=== PATIENT | female | born 1985 | race Caucasian/White ===

== ENCOUNTER → 2017-10-21 | Outpatient (CLI) | payer OTHER ==
[~2017-10-21] MED LIST: ALBU6.7H INH; BUSP10TA PO; CETI10TA2 PO; CYCL10TA PO; CYCL5TAB PO; HYDR-3583 PO; HYDR-755 PO; MONT10TA4 PO; NAPR500T2 PO
[2017-10-21 11:18] LABS: HEMATOCRIT 40.8 % (35.0-46.0); HEMOGLOBIN 13.9 GM/DL (11.6-15.3); MEAN CELL VOLUME 92.2 FL (80.0-100.0); MEAN CORPUSCULAR HEMOGLOBIN 31.4 PG (27.0-34.0); MEAN CORPUSCULAR HGB CONC 34.1 % (32.0-36.0); MEAN PLATELET VOLUME 7.8 FL (7.0-11.0); PLATELET COUNT 327 TH/MM3 (150-450); RED BLOOD COUNT 4.42 MIL/MM3 (4.00-5.30); RED CELL DISTRIBUTION WIDTH 13.6 % (11.6-17.2); WHITE BLOOD COUNT 13.4 TH/MM3 (4.0-11.0)
[2017-10-21 11:28] LABS: BILIRUBIN, URINE NEG (NEG); BLOOD, URINE SMALL (NEG); GLUCOSE,URINE NEG (NEG); KETONE, URINE NEG (NEG); MUCUS URINE FEW /lpf (OCC); NITRITE,URINE NEG (NEG); PH, URINE 5.5 (5.0-8.5); SQUAMOUS EPITHELIAL CELL URINE 12 /hpf (0-5); URINE COLOR YELLOW (YELLW/STRAW); URINE LEUKOCYTE ESTERASE NEG (NEG)
--- NOTE | 2017-10-21 18:15 | EKG ---
Date Performed: 10/21/2017 Time Performed: 11:15:02 PTAGE: 32 years EKG: Sinus rhythm INCOMPLETE RIGHT BUNDLE BRANCH BLOCK BORDERLINE ECG NO PREVIOUS TRACING DOCTOR: Jessica Torres Interpretating Date/Time 10/21/2017 18:14:12
== END ==
LOC: CPRE 09:41
PROVIDERS: ATTEND Neurological Surgery
DX: Z01.812 Encounter for preprocedural laboratory examination (principal); Z01.810 Encounter for preprocedural cardiovascular examination; M50.20 Other cervical disc displacement, unspecified cervical region
CPT/HCPCS: 36415; 81001; 85027; 87640; 87641; 93005

== ENCOUNTER → 2017-10-21 | Outpatient (CLI) | payer OTHER ==
--- NOTE | 2017-10-21 11:09 | RADRPT ---
EXAM DATE/TIME: 10/21/2017 10:58 [facility] COMPARISON: No previous studies available for comparison. INDICATIONS : Evaluate for pneumonia, pneumothorax and communicable diseases. Pre-op for cervical spine surgery. MEDICAL HISTORY : Asthma. SURGICAL HISTORY : section. Breast lift. ENCOUNTER: Initial ACUITY: 1 day PAIN SCORE: 0/10 LOCATION: Bilateral chest FINDINGS: PA and lateral views of the chest demonstrate the lungs to be symmetrically aerated without evidence of mass, infiltrate or effusion. The cardiomediastinal contours are unremarkable. Osseous structure s are intact. CONCLUSION: No acute disease. Keven Ferraro MD FACR on October 21, 2017 at 11:07 Board Certified Radiologist. This report was verified electronically.
== END ==
LOC: HRAD 10:44
PROVIDERS: ATTEND Neurological Surgery
DX: M50.20 Other cervical disc displacement, unspecified cervical region (principal)
CPT/HCPCS: 71046

== ENCOUNTER 2017-10-22 06:48 | Observation (INO) | payer OTHER ==
[~2017-10-22] VITALS: Ht 170.2 cm; Wt 93.1 kg
[~2017-10-22 06:48] MED LIST changes: -CYCL10TA PO; -HYDR-3583 PO
[2017-10-22] MEDS ORDERED: CHLORHEXIDINE GLUCONATE 2 % 1 PACK (2 CLOTHS)(extra cloths) TOPICAL PRN (07:30)
[2017-10-22] MEDS ORDERED: INSULIN HUMAN REGULAR 1,000 UNITS/10 ML VIAL SQ PRN (07:30)
[2017-10-22] MEDS ORDERED: ceFAZolin 2 GM PREMIX 50 ML IV SCH (07:30)
[2017-10-22] MEDS ORDERED: SODIUM CHLORID 0.9% 500 ML IV PRN (07:30)
[2017-10-22] MEDS ORDERED: METOPROLOL TARTRATE 25 MG TAB PO PRN (07:30)
[2017-10-22] MEDS ORDERED: POVIDONE IODINE 5% (ANTISEPSIS KIT) 4 APPLICATIONS EACH NARE PRN (07:30)
[2017-10-22] MEDS ORDERED: CHLORHEXIDINE GLUCONATE 2 % 1 PACK (2 CLOTHS) TOPICAL PRN (07:30)
[2017-10-22] MEDS ORDERED: MICROFIBRILLAR COLLAGEN HEMOSTAT 70 X 35 MM BANDAGE ONE (07:47)
[2017-10-22] MEDS ORDERED: THROMBIN (TOPICAL) 5,000 UNIT VIAL ONE (07:47)
[2017-10-22] MEDS ORDERED: GENTAMICIN SULFATE 80 MG/2 ML VIAL ONE (07:48)
[2017-10-22] MEDS ORDERED: GELFOAM SIZE 100 ONE (07:48)
[2017-10-22] MEDS: LACTATED RINGER'S 1000 ML IV PRN ×2 (10:30→17:16)
[2017-10-22 10:32] LABS: AUTOMATED NEUTROPHIL # 6.7 TH/MM3 (1.8-7.7); BASOPHIL % 0.3 % (0.0-2.0); EOSINOPHIL # 0.4 TH/MM3 (0-0.4); EOSINOPHIL % 3.6 % (0.0-4.0); HEMATOCRIT 42.2 % (35.0-46.0); HEMOGLOBIN 14.4 GM/DL (11.6-15.3); LYMPH % 27.4 % (9.0-44.0); LYMPHOCYTE # 3.1 TH/MM3 (1.0-4.8); MEAN CELL VOLUME 92.3 FL (80.0-100.0); MEAN CORPUSCULAR HEMOGLOBIN 31.4 PG (27.0-34.0); MEAN PLATELET VOLUME 7.9 FL (7.0-11.0); MONO % 8.8 % (0.0-8.0); NEUT % 59.9 % (16.0-70.0); PLATELET COUNT 322 TH/MM3 (150-450); RED BLOOD COUNT 4.57 MIL/MM3 (4.00-5.30); RED CELL DISTRIBUTION WIDTH 13.3 % (11.6-17.2); WHITE BLOOD COUNT 11.1 TH/MM3 (4.0-11.0)
[2017-10-22 10:33] LABS: BACTERIA, URINE OCC /hpf; BILIRUBIN, URINE NEG (NEG); BLOOD, URINE NEG (NEG); GLUCOSE,URINE NEG (NEG); KETONE, URINE NEG (NEG); NITRITE,URINE NEG (NEG); PH, URINE 7.5 (5.0-8.5); SQUAMOUS EPITHELIAL CELL URINE 1 /hpf (0-5); URINE COLOR LIGHT-YELLOW (YELLW/STRAW); URINE LEUKOCYTE ESTERASE NEG (NEG)
[2017-10-22] MEDS ORDERED: LACTATED RINGER'S 1000 ML INJ 2,000 ML IV ONE (12:00)
[2017-10-22] MEDS ORDERED: LIDOCAINE HCL 1% PF 5 ML SYRINGE OTHER ONE (12:00)
[2017-10-22] MEDS ORDERED: ROCURONIUM INJ 50 MG/5 ML SYRINGE IV PUSH ONE (12:00)
[2017-10-22] MEDS ORDERED: PHENYLEPH/NS 1000 MCG/10 ML SYR IV ONE (12:00)
[2017-10-22] MEDS ORDERED: ePHEDrine/NS 25 MG/5 ML SYRINGE IV ONE (12:00)
[2017-10-22] MEDS ORDERED: PROPOFOL 200 MG/20 ML AMP IV ONE (12:00)
[2017-10-22] MEDS ORDERED: ONDANSETRON HCL 4 MG/2 ML VIAL IV ONE (12:00)
[2017-10-22] MEDS ORDERED: KETOROLAC TROMETHAMINE 30 MG/ML (IVP) VIAL IV PUSH ONE (12:00)
[2017-10-22] MEDS ORDERED: DEXAMETHASONE SOD PHOS 4 MG/ML VIAL IV ONE (12:00)
[2017-10-22] MEDS ORDERED: GLYCOPYRROLATE 1 MG/5 ML SYRINGE IV PUSH ONE (12:00)
[2017-10-22] MEDS ORDERED: ARTIFICIAL TEARS OPTH OINT 3.5 APPLIC/3.5 GM TUBO ONE (13:06)
[2017-10-22] MEDS ORDERED: PROPOFOL 500 MG/50 ML INJ 50 ML ONE (13:06)
[2017-10-22] MEDS ORDERED: ACETAMINOPHEN 1000 MG/100 ML 100 ML IV ONE (13:06)
[2017-10-22] MEDS ORDERED: ACETAMINOPHEN 325 MG TAB PO PRN (13:45)
[2017-10-22] MEDS ORDERED: MAGNESIUM HYDROXIDE SUSP 30 ML CUP PO PRN (13:45)
[2017-10-22] MEDS ORDERED: CYCLOBENZAPRINE HCL 10 MG TAB PO PRN (13:45)
[2017-10-22] MEDS ORDERED: ONDANSETRON HCL 4 MG/2 ML VIAL IV PRN (13:45)
[2017-10-22] MEDS ORDERED: ACETAMINOPHEN/HYDROcodone 325 MG/10 MG TAB PO PRN (13:45)
[2017-10-22] MEDS ORDERED: DEXTROSE 50% IN WATER 50 ML VIAL(D50) IV PUSH PRN (13:45)
[2017-10-22] MEDS ORDERED: GLUCAGON 1 MG/ML VIAL OTHER PRN (13:45)
[2017-10-22] MEDS ORDERED: cloNIDine HCL 0.1 MG TAB PO/NG PRN (13:45)
[2017-10-22] MEDS ORDERED: RESP: ALBUTEROL 2.5 MG/3 ML NEB (PRN) INH (13:45)
[2017-10-22] MEDS ORDERED: BISACODYL 10 MG SUPP RECTAL PRN (13:45)
[2017-10-22] MEDS ORDERED: MENTHOL LOZENGE BUCCAL PRN (13:45)
[2017-10-22] MEDS: DEXAMETHASONE SOD PHOS 4 MG/ML VIAL IV PUSH SCH ×2 (14:00→21:02)
[2017-10-22] MEDS ORDERED: MORPHINE SULFATE 2 MG/ML INJ IV PUSH PRN ×2 (14:45)
[2017-10-22] MEDS ORDERED: DO NOT ADM ANY ANTICOAGULANT DRUGS PRN (16:34)
[2017-10-22] MEDS ORDERED: MIDAZOLAM HCL 2 MG/2 ML VIAL ONE (16:45)
[2017-10-22] MEDS ORDERED: MORPHINE SULFATE 4 MG/ML INJ ONE (16:46)
[2017-10-22] MEDS: SODIUM CHLOR 0.9% 1000 ML INJ 1,000 ML IV SCH ×2 (17:00→23:45)
--- NOTE | 2017-10-22 17:10 | PD.OP ---
Operative Report Date of Surgery: Oct 22, 2017 Preoperative Diagnosis: C5-6 disk herniation Postoperative Diagnosis: C5-6 disk herniation Procedure: C5-6 anterior cervical discectomy and arthroplasty using Mobi C Anesthesia: general Surgeon: Otf Cherry Drafter Electromechanical(s): Sonali Cox Operation and Findings: INDICATIONS FOR THE PROCEDURE Ms Valdes is a 32 year-old male who presented with intractable neck pain and clinical evidence of C6 cervical radiculopathy. She was found to have a disk herniation with extrusion at C5-6 causing significant mass effect on the nerve roots. He has failed multiple modalities of nonsurgical treatment including phsycal therapy, analgesics, antiinflammatories, and pain management with mulriple epidural steroid injections. The severity of his pain and symptoms were affecting her quality of life. An anterior cervical discectomy and arthroplasty were indicated. The [id number] details of the surgical procedure, indications, alternatives, risks and potential complications were fully discussed with the patient. The patient fully understood. All his questions were answered. No guarantees were given. He voiced requesting the procedure and signed informed consents. Dr Mascorro was offered the alternative of delaying the procedure and continuing with nonsurgical management. DETAILS OF THE SURGICAL PROCEDURE SURGICAL APPROACH A skin incision was made along the middle to inferior cervical crease with a # 10 blade. The dissection was carried out through the platysma exposing the sternocleidomastoid muscle. The cervical spine was approached following the fascial layers of the neck, just medial to the anterior border of the sternocleidomastoid and carotid sheath by a combination of sharp and dull dissection. The omohyoid muscle was identified and carefully dissected laterally and the deep cervical fascia was carefully opened. The longus colli muscles were retracted to each side of the midline. A marker was placed at the c5-6 disc space and a cross-table lateral x-ray performed with a C-arm. An AP xray was then obtained as well, and the midline of the disk space was defined. SURGICAL DECOMPRESSION In order to decompress the anterior surface of the spinal cord it was necessary to perform a microsurgical resection of the disk. At this point in the procedure the operating microscope was draped in the usual sterile fashion and brought to the field. The rest of the surgical procedure was performed using microdissection technique with the exception of the closure. Under the operative microscopic a self-retaining retractor was placed underneath the longus colli muscle. The annulus was incised with a #15 blade and microdiscectomy was then carefully carried out using angled curets and pituitary forceps. The patient had a large disk extrusion which was producing mass affect on the exiting nerve root. This was carefully dissected with a nerve hock and resected with a think foot plate 2 mm Kerrison under high magnification. The posterior longitudinal ligament was then elevated with an angled curet and incised with a 15 bladed knife. A careful resection of the posterior longitudinal ligament was carried out using a thin footplate 2 mm Kerrison. Extruded disk fragments causing mechanical compression over the exiting C6 nerve root were carefully dissected. The decompression was then carried out laterally, and a bilateral foraminotomy was performed with a 2 mm thin foot Kerrison. The epidural space was the systematically assessed with a nerve hook in search for disk fragments of scar tissue. An excellent decompression was achieved in both, the dural sac and bilateral exiting nerve roots. The incision was then irrigated with a large amount of antibiotic solution INTERBODY ARTHROPLASTY In order to avoid collapse of the disk space which would result in bilateral foraminal stenosis, and in order to maintain disk space height and function minimally development of adjacent level degeneration, it was necessary to place an interbody device. At this point of the procedure, gentle distraction was applied. The size of the interbody device was then assessed using a trial, and a cross table xray was done for confirmation of appropriate size and position of the device. Then the disk space was irrigated with antibiotic solution, and a 15mm by 6mm Mobi C artificial disk was carefully impacted into the disc space C5-6. An excellent position of the device was achieved. This was confirmed anatomically by feeling the space posterior to the implant and distance to the anterior surface of the dural sac. Radiological confirmation of the position was performed with a cross table AP and lateral X-ray views, performed with the C-arm. COMPLETION OF THE SURGICAL PROCEDURE Once that each interbody device was in an appropriate position, the distraction was discontinued. The position of the device as well as alignment of the spine were assessed anatomically by direct visualization, and radiologically by performing an AP and lateral X-ray of the cervical spine with the C-arm. The position of the implant was excellent. The incision was irrigated with several liters of antibiotic solution. Hemostasis was achieved with a bipolar. A 7 mm Hamilton-Pitts drain was left in the prevertebral space and externalized through a separate stab incision. The incision was then closed in layers. 3-0 Vicryl with interrupted sutures was used to close the platysma and subcutaneous tissue. The skin was closed with 4- 0 running subcuticular Vicryl and Dermabond was applied to the skin. The drain was secured with a 3-0 nylon. At the end of the procedure the sponge, needle and instrument counts were all correct. The estimated blood loss was less than 70 cc. No blood transfusion was given. No intraoperative complications occurred. The patient received prophylactic antibiotics. The patient was then extubated and transferred to the recovery room in stable condition. Otf Cherry MD Oct 22, 2017 17:10
[2017-10-22] MEDS: INSULIN ASPART SUPPLEMENTAL SCALE SQ SCH ×2 (17:15→20:54)
[2017-10-22] MEDS ORDERED: *morphine SULFATE 10 MG/ML PERIprocedure ONLY ONE (17:30)
[2017-10-22] MEDS ORDERED: *ONDANSETRON 4 MG VIAL PERIprocedural Use ONLY ONE (19:44)
--- NOTE | 2017-10-22 20:30 | RADRPT ---
EXAM DATE/TIME: 10/22/2017 14:36 [facility] COMPARISON: No previous studies available for comparison. INDICATIONS : Artificial disk C5,C6. MEDICAL HISTORY : Asthma. SURGICAL HISTORY : section. Breast lift. ENCOUNTER: Initial ACUITY: 1 day PAIN SCORE: Non-responsive. LOCATION: cervical spine. FINDINGS: AP and lateral views of the operating room show disc replacement at C5/C6. Alignment is normal. No fr acture or other acute complication demonstrated. CONCLUSION: Expected intraoperative appearance, disc replacement at C5/C6. Ignacio Martinez MD on October 22, 2017 at 20:27 Board Certified Radiologist. This report was verified electronically.
[2017-10-22] MEDS ORDERED: CHLORHEXIDINE GLUCONATE 4% SOLN 120 ML BTL TOP SCH (21:00)
[2017-10-22] MEDS: DOCUSATE SODIUM 100 MG CAP PO SCH (21:00)
[2017-10-22] MEDS: ceFAZolin 2 GM PREMIX 50 ML IV SCH (22:00)
[2017-10-22 23:09] VITALS: BP 115/71; PULSE 76; RESP 18; TEMP 99.5; O2SAT 98
[2017-10-23] MEDS: DEXAMETHASONE SOD PHOS 4 MG/ML VIAL IV PUSH SCH ×2 (00:21→08:23)
[2017-10-23] MEDS: ACETAMINOPHEN/HYDROcodone 325 MG/10 MG TAB PO PRN ×4 (00:21→13:00)
[2017-10-23 04:20] VITALS: BP 137/80; PULSE 101; RESP 18; TEMP 98.2; O2SAT 97
[2017-10-23] MEDS: ceFAZolin 2 GM PREMIX 50 ML IV SCH (06:13)
[2017-10-23 08:00] VITALS: BP 100/59; PULSE 97; RESP 18; TEMP 99.1; O2SAT 96
[2017-10-23] MEDS: INSULIN ASPART SUPPLEMENTAL SCALE SQ SCH (08:00)
[2017-10-23] MEDS: DOCUSATE SODIUM 100 MG CAP PO SCH (08:22)
[2017-10-23] MEDS ORDERED: PANTOPRAZOLE SOD 40 MG DELAYED RELEASE TAB PO SCH (09:00)
[2017-10-23] MEDS ORDERED: PANTOPRAZOLE SODIUM 40 MG VIAL IVP SCH (09:00)
[2017-10-23] MEDS ORDERED: HYDR-3583 PO (09:29)
[2017-10-23] MEDS: SODIUM CHLOR 0.9% 1000 ML INJ 1,000 ML IV SCH (09:45)
[2017-10-23 12:00] VITALS: BP 107/62; PULSE 94; RESP 18; TEMP 99.1; O2SAT 97
[2017-10-23] MEDS ORDERED: CYCL10TA PO (12:41)
--- NOTE | 2017-10-23 12:47 | HHI.DS ---
Discharge Summary Admission Date Oct 22, 2017 at 14:40 Discharge Date: Oct 23, 2017 Admitting Diagnosis s/p ACD mobi C (1) S/P cervical discectomy ICD Code: Z98.890 - Other specified postprocedural states Brief History Ms Valdes is a 32 year-old male who presented with intractable neck pain and clinical evidence of C6 cervical radiculopathy. She was found to have a disk herniation with extrusion at C5-6 causing significant mass effect on the nerve roots. He has failed multiple modalities of nonsurgical treatment including physial therapy, analgesics, antiinflammatories, and pain management with multiple epidural steroid injections. The severity of his pain and symptoms were affecting her quality of life. An anterior cervical discectomy and arthroplasty were indicated. CBC/BMP: 10/22/17 1015 Significant Findings Laboratory Tests Test 10/22/17 10:15 White Blood Count 11.1 TH/MM3 (4.0-11.0) Monocytes (%) (Auto) 8.8 % (0.0-8.0) Monocytes # (Auto) 1.0 TH/MM3 (0-0.9) Urine Bacteria OCC /hpf (NONE) Hospital Course Ms. Valdes underwent a C5-6 anterior cervical discectomy and arthroplasty using Mobi C on Oct 22, 2017 for C5-6 disk herniation. She was discharged the following day in stable conditions. Pt Condition on Discharge: Stable Discharge Disposition: Discharge Home Discharge Instructions DIET: Follow Instructions for: Heart Healthy Diet ADDITIONAL Diet Instructions: soft foods and advance as tolerated ACTIVITIES You can perform: Weight Bearing As Denis ADDITIONAL Activity Instructio: Avoid strenuous activities, or any other activities that may place stress on the spine. Wear cervical collar at all times, may remove with meals. Avoid falls. New Medications: Cyclobenzaprine (Flexeril) 10 Mg Tab 10 MG PO TID for Muscle Spasm, #90 TAB 0 Refills Hydrocodone/Acetaminophen (Hydrocodone-Acetamin 10-325 mg) 10 Mg-325 Mg Tablet 1 TAB PO Q4H PRN for PAIN SCALE 1 TO 5, #62 TAB-CAP 0 Refills Continued Medications: Albuterol 6.7 GM Inh (Proventil Hfa 6.7 GM Inh) 90 Mcg/Act Aer 2 PUFF INH PRN for asthma Buspirone (Buspirone) 10 Mg Tab 1 TAB PO BID Cetirizine HCl (Kp Cetirizine HCl) 10 Mg Tab 1 TAB PO HS Cyclobenzaprine (Flexeril) 5 Mg Tab 5 MG PO TID PRN for pain, #90 TAB 0 Refills Hydroxyzine HCl (Hydroxyzine HCl) 10 Mg Tab 1 TAB PO TID PRN for ANXIETY Montelukast (Montelukast) 10 Mg Tab 1 TAB PO HS Naproxen (Naproxen) 500 Mg Tab 1 TAB PO TID PRN for pain [place] [facility] Oct 23, 2017 12:47
--- NOTE | 2017-10-23 12:47 | HHI.DCPOC ---
Discharge Care Plan Diagnosis: (1) Status post cervical arthrodesis Goals to Promote Your Health * To prevent worsening of your condition and complications * To maintain your health at the optimal level Directions to Meet Your Goals Take your medications as prescribed Follow your dietary instruction Follow activity as directed Keep your appointments as scheduled Take your immunizations and boosters as scheduled If your symptoms worsen call your PCP, if no PCP go to Urgent Care Center or Emergency Room Smoking is Dangerous to Your Health. Avoid second hand smoke Call the 24-hour hour crisis hotline for domestic abuse at [facility] Oct 23, 2017 12:47
== END 2017-10-23 13:48 | disposition home or self-care (01) ==
LOC: HSDC 06:48 → HSDI 14:40 → N06A 23:03
PROVIDERS: ADMIT Neurological Surgery; ATTEND Neurological Surgery
DX: M50.122 Cervical disc disorder at C5-C6 level with radiculopathy (principal); J45.909 Unspecified asthma, uncomplicated
CPT/HCPCS: 00600; 22551; 22853; 72040; 76000; 81001; 85025; 94150; 96361; 96365; 96366; 96375; 96376; 97161; C1889; C9113; G0378; G8987; G8988; J0131; J0690; J1100; J1580; J1885; J2250; J2270; J2370; J2405; J3010; J7030; J7120; L0150; L0172